=== PATIENT | female | born 1945 | race Caucasian/White ===

== ENCOUNTER 2020-05-17 15:51 | Outpatient (CLI) | payer MEDICARE, OTHER, SELFPAY ==
--- NOTE | 2020-05-17 15:59 | XRR_ITS ---
PROCEDURE INFORMATION: Exam: XR Right Foot Complete Exam date and time: 05/17/2020 3:59 PM Age: 74 years old Clinical indication: Pain; Foot; Bilateral; Additional info: Inflammatory arthritis, pain TECHNIQUE: Imaging protocol: XR Right foot. Views: 3 or more views. COMPARISON: No relevant prior studies available. FINDINGS: Bones/joints: Negative for acute bony abnormality Soft tissues: Normal. XR/XR foot RT min 3V* [id number] IMPRESSION: No acute findings.
--- NOTE | 2020-05-17 15:59 | XRR_ITS ---
PROCEDURE INFORMATION: Exam: XR Right Hand Exam date and time: 05/17/2020 3:59 PM Age: 74 years old Clinical indication: Pain; Hand; Bilateral; Additional info: Inflammatory arthritis, pain TECHNIQUE: Imaging protocol: XR Right hand. Views: 3 or more views. COMPARISON: No relevant prior studies available. FINDINGS: Bones/joints: Negative for acute bony abnormality. There is mild osteoarthritis seen with narrowing of the interphalangeal articulations of multiple digits. Soft tissues: Normal. XR/XR hand RT min 3V* [id number] IMPRESSION: Negative for acute bony abnormality
--- NOTE | 2020-05-17 15:59 | XRR_ITS ---
PROCEDURE INFORMATION: Exam: XR Chest, 2 Views Exam date and time: 05/17/2020 3:59 PM Age: 74 years old Clinical indication: Pain; Other: Arthritis; Additional info: Inflammatory arthritis TECHNIQUE: Imaging protocol: XR of the chest Views: 2 views. COMPARISON: No relevant prior studies available. FINDINGS: Lungs: Unremarkable. No consolidation. Pleural space: Unremarkable. No pleural effusion. No pneumothorax. Heart/Mediastinum: Unremarkable. No cardiomegaly. Bones/joints: Osteopenia and osteoarthritis is seen. 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 No fracture or subluxations are noted. XR/XR chest 2V* [id number] IMPRESSION: No acute findings. Dorsal spine osteopenia and osteoarthritis
--- NOTE | 2020-05-17 15:59 | XRR_ITS ---
PROCEDURE INFORMATION: Exam: XR Left Foot Complete Exam date and time: 05/17/2020 3:59 PM Age: 74 years old Clinical indication: Pain; Foot; Bilateral; Additional info: Inflammatory arthritis, pain TECHNIQUE: Imaging protocol: XR Left foot. Views: 3 or more views. COMPARISON: No relevant prior studies available. FINDINGS: Bones/joints: Negative for acute bony abnormality. Bone spur inferior calcaneus Soft tissues: Soft tissue edema is seen in the dorsal aspect of the foot XR/XR foot LT min 3V* [id number] IMPRESSION: No acute bone abnormality. Bone spur inferior calcaneus Soft tissue edema dorsal foot
--- NOTE | 2020-05-17 15:59 | XRR_ITS ---
PROCEDURE INFORMATION: Exam: XR Left Hand Exam date and time: 05/17/2020 3:59 PM Age: 74 years old Clinical indication: Pain; Hand; Bilateral; Additional info: Inflammatory arthritis, pain TECHNIQUE: Imaging protocol: XR Left hand. Views: 3 or more views. COMPARISON: No relevant prior studies available. FINDINGS: Bones/joints: There is mild osteoarthritis seen with narrowing of the interphalangeal articulations of multiple digits. Exam does not show evidence of bony erosions or other changes corresponding to inflammatory arthritis. Soft tissues: Normal. XR/XR hand LT min 3V* [id number] IMPRESSION: Mild osteoarthritis Otherwise No acute findings.
== END 2020-05-17 15:52 | disposition home or self-care (01) ==
LOC: RADWPI 15:57
PROVIDERS: Family Provider Family Medicine; PCP Family Medicine; Visit Provider Internal Medicine Rheumatology
DX: R70.0 Elevated erythrocyte sedimentation rate (principal); Z79.899 Other long term (current) drug therapy; Z11.59 Encounter for screening for other viral diseases; Z11.1 Encounter for screening for respiratory tuberculosis; M79.10 Myalgia, unspecified site; M25.50 Pain in unspecified joint; M15.9 Polyosteoarthritis, unspecified; M81.0 Age-related osteoporosis without current pathological fracture; E11.9 Type 2 diabetes mellitus without complications
CPT/HCPCS: 36415; 71046; 73130; 73630; 80076; 82306; 82565; 83036; 85025; 85651; 86140; 86480; 86704; 86803; 87340; 99204

== ENCOUNTER → 2020-06-12 15:40 | Outpatient (BNVA) | payer MEDICARE, OTHER, SELFPAY | PROVIDERS: PCP Family Medicine; Visit Provider Internal Medicine Rheumatology | DX: M35.3 Polymyalgia rheumatica (principal); R76.12 Nonspecific reaction to cell mediated immunity measurement of gamma interferon antigen response without active tuberculosis; M15.9 Polyosteoarthritis, unspecified; Z79.899 Other long term (current) drug therapy; R70.0 Elevated erythrocyte sedimentation rate; M81.0 Age-related osteoporosis without current pathological fracture; E11.9 Type 2 diabetes mellitus without complications | CPT/HCPCS: 99214 ==

== ENCOUNTER → 2020-10-18 14:21 | Outpatient (BNVA) | payer MEDICARE, OTHER, SELFPAY | PROVIDERS: PCP Family Medicine; Visit Provider Internal Medicine Rheumatology | DX: M35.3 Polymyalgia rheumatica (principal); M19.90 Unspecified osteoarthritis, unspecified site; Z79.899 Other long term (current) drug therapy; Z79.52 Long term (current) use of systemic steroids; E11.9 Type 2 diabetes mellitus without complications; Z85.038 Personal history of other malignant neoplasm of large intestine; Z85.3 Personal history of malignant neoplasm of breast | CPT/HCPCS: 99214 ==

== ENCOUNTER → 2021-03-15 12:46 | Outpatient (BNVA) | payer MEDICARE, OTHER, SELFPAY | PROVIDERS: PCP Family Medicine; Visit Provider Internal Medicine Rheumatology | DX: M35.3 Polymyalgia rheumatica (principal); M19.90 Unspecified osteoarthritis, unspecified site; M81.0 Age-related osteoporosis without current pathological fracture; E11.9 Type 2 diabetes mellitus without complications; Z79.899 Other long term (current) drug therapy; Z85.3 Personal history of malignant neoplasm of breast; Z85.038 Personal history of other malignant neoplasm of large intestine | CPT/HCPCS: 99214 ==